=== PATIENT | female | born 1995 | race African-American/Black ===

== ENCOUNTER → 2021-05-02 10:15 | Outpatient (CLI) | payer BC, SELFPAY ==
--- NOTE | ~2021-05-02 | US_ITS ---
EXAMINATION: US pelvic complete w TV DATE: 05/02/2021 11:15 INDICATION: Uterine fibroids. Comparison:No prior studies for comparison. TECHNIQUE: Multiple transabdominal and endovaginal sonographic images of the pelvis performed. FINDINGS: The uterus measures 12.5 x 9.9 x 9.3 cm. There are multiple uterine fibroids, largest measu ring approximately 6.6 cm greatest dimension. The endometrial complex measures 17 mm. The right ovary is not visualized. Left ovary is unremarkable measuring 4.1 x 3.2 x 3.7 cm. There is no free fluid in the pelvis. There are no abnormal masses seen on either side. IMPRESSION: 1. Enlarged uterus containing multiple fibroids, largest measuring up to 6.6 cm maximum dimension. 2: Endometrial thickening measuring 17 mm. Reviewed, dictated and finalized at location A.
== END ==
PROVIDERS: Visit Provider Obstetrics & Gynecology
DX: D25.9 Leiomyoma of uterus, unspecified (principal)
CPT/HCPCS: 76830; 76856

== ENCOUNTER → 2022-05-08 12:47 | Outpatient (CLI) | payer BC, SELFPAY ==
--- NOTE | ~2022-05-08 | US_ITS ---
EXAMINATION: US pelvic complete w TV DATE: 05/08/2022 13:09 INDICATION: Pelvic pressure. Fibroids. Comparison:Ultrasound dated 05/02/2021 TECHNIQUE: Multiple transabdominal and endovaginal sonographic images of the pelvis performed. FINDINGS: The uterus measures 15.6 x 6.6 x 11.8 cm. There is a large complex heterogeneous fibroid me asuring 12.1 x 8.7 x 8.6 cm which distorts the endometrium. Endometrial thickness cannot be evaluated . The right ovary is not visualized. Left ovary measures 5.5 x 2.6 x 3.6 cm with follicular changes a nd normal Doppler signal. IMPRESSION: 1. Enlarged uterus containing a 12.1 cm fibroid. Endometrium not delineated due to fibroid changes. Reviewed, dictated and finalized at location B.
== END ==
PROVIDERS: PCP Obstetrics & Gynecology; Visit Provider Obstetrics & Gynecology
DX: D25.9 Leiomyoma of uterus, unspecified (principal)
CPT/HCPCS: 76830; 76856